=== PATIENT | female | born 1965 | race Caucasian/White ===

== ENCOUNTER 2020-12-18 07:03 | Emergency (ER) | payer BC ==
[2020-12-18 07:08] VITALS: BP 96/56; PULSE 84
[2020-12-18] MEDS ORDERED: Ketorolac 60 MG/2 ML SDV IM ONE (08:10)
[2020-12-18] MEDS ORDERED: traMADol 50 MG Tab PO ONE (08:15)
[2020-12-18 08:41] LABS: CHLORIDE,CL 104 mmol/L (98-107); SODIUM,NA 141 mmol/L (136-145)
[2020-12-18] MEDS ORDERED: Morphine 4 MG/ML Syringe SUBCUT ONE (09:14)
--- NOTE | 2020-12-18 09:14 | EDM.PDOC ---
ED HPI GENERAL MEDICAL PROBLEM - General Chief Complaint: Lower Extremity Injury/Pain Stated Complaint: left foot injury Time Seen by Provider: 12/18/20 07:35 Source of Information: Reports: Patient History Limitations: Reports: No Limitations - History of Present Illness INITIAL COMMENTS - FREE TEXT/NARRATIVE: Slipped and fell on ice last night. Has left foot pain. This morning more swollen and painful. Denies other injuries. Does have a bump on back of head but denies LOC. 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: Other (see below) Other Treatments SUPERVISOR INSTRUMENT REPAIR: hydrocodone Left Foot Pain Score (Numeric/FACES): 8 - Related Data Allergies Allergy/AdvReac Type Severity Reaction Status Date / Time cephalexin [From Keflex] Allergy Itching Verified 12/18/20 07:04 Sulfa (Sulfonamide Allergy Itching Verified 12/18/20 07:04 Antibiotics) Home Meds: Home Meds Codeine Sulfate 30 mg PO Q6H PRN #10 tab 12/18/20 [Rx] FLUoxetine HCl [Prozac] 1 cap PO DAILY 12/18/20 [History] Melatonin 1 tab PO BEDTIME 12/18/20 [History] Vit #116/Iron/FA/Dha [ Formula-Dha Softgel] 1 cap PO DAILY 12/18/20 [History] 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: 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: Reports: Back Pain, Chronic Psychiatric History: Reports: Anxiety, Depression - Infectious Disease History Infectious Disease History: Reports: Chicken Pox, Shingles - Past Surgical History Female Surgical History: Reports: Hysterectomy Musculoskeletal Surgical History: Reports: Other (See Below) Other Musculoskeletal Surgeries/Procedures:: back surgery Social & Family History - Tobacco Use Tobacco Use Status *Q: Current Every Day Tobacco User Years of Tobacco use: 40 Packs/Tins Daily: 0.5 Used Tobacco, but Quit: No Second Hand Smoke Exposure: No - Caffeine Use Caffeine Use: Reports: Coffee, Soda - Alcohol Use Days Per Week of Alcohol Use: 1 Number of Drinks Per Day: 6 Total Drinks Per Week: 6 - Recreational Drug Use Recreational Drug Use: No Review of Systems - Review of Systems Review Of Systems: See Below Constitutional: Reports: No Symptoms Eyes: Denies: Blindness, Decreased Acuity, Photophobia, Vision Change Ears: Reports: No Symptoms Nose: Reports: No Symptoms Mouth/Throat: Reports: No Symptoms Respiratory: Reports: No Symptoms Cardiovascular: Reports: No Symptoms GI/Abdominal: Reports: No Symptoms Genitourinary: Reports: No Symptoms Musculoskeletal: Reports: Foot Pain, Joint Swelling, Other (bump back of head) Skin: Reports: No Symptoms Neurological: Reports: No Symptoms Psychiatric: Reports: No Symptoms ED EXAM, GENERAL - Physical Exam Exam: See Below Exam Limited By: No Limitations General Appearance: Alert, WD/WN, Mild Distress Eye Exam: Bilateral Eye: EOMI, PERRL Ears: Hearing Grossly Normal Nose: No: Nasal Deformity, Nasal Swelling, Nasal Drainage Throat/Mouth: Normal Lips, Normal Voice, No Airway Compromise Head: Other (small bump back of head/mild tenderness) Neck: Normal Inspection, Supple, Non-Tender, Full Range of Motion Respiratory/Chest: No Respiratory Distress, Lungs Clear, Normal Breath Sounds, No Accessory Muscle Use, Chest Non-Tender Cardiovascular: Regular Rate, Rhythm, No Murmur GI/Abdominal: Soft, Non-Tender (Female) Exam: Deferred Rectal (Female) Exam: Deferred Back Exam: No: Muscle Spasm, Paraspinal Tenderness, Vertebral Tenderness Extremities: Other (Swelling proximal foot/ankle region on left/tender to touch diffusely) Neurological: Alert, Oriented, Normal Cognition Psychiatric: Normal Affect, Normal Mood Skin Exam: Warm, Dry, Intact. No: Ecchymosis, Erythema, Mottled, Pallor Course - Vital Signs Last Recorded V/S: Last Vital Signs Temp 36.2 C 12/18/20 07:07 Pulse 84 12/18/20 07:07 Resp 16 12/18/20 07:07 BP 96/56 L 12/18/20 07:07 Pulse Ox 99 12/18/20 07:07 - Orders/Labs/Meds Orders: Active Orders 24 hr Category Date Time Status Foot Comp Min 3V Lt [CR] Stat Exams 12/18/20 07:11 Taken Foot wo Cont Lt [CT] Stat Exams 12/18/20 08:32 Taken Labs: Laboratory Tests 12/18/20 12/18/20 Range/Units 08:20 08:20 WBC 9.4 (4.0-10.2) K/uL RBC 4.35 (3.77-5.09) M/uL Hgb 14.1 (11.7-15.5) g/dL Hct 42.0 (34.0-46.0) % MCV 96.6 (84.0-98.0) fL MCH 32.4 (28.2-33.3) pg MCHC 33.6 (31.7-36.0) g/dL RDW 13.2 (11.2-14.1) % Plt Count 198 (150-350) K/uL Neut % (Auto) 81.0 H (45.0-80.0) % Lymph % (Auto) 14.1 (10.0-50.0) % Wilson % (Auto) 4.0 (2.0-14.0) % Eos % (Auto) 0.7 (0.0-5.0) % Baso % (Auto) 0.2 (0.0-2.0) % Neut # (Auto) 7.58 H (1.40-7.00) K/uL Lymph # (Auto) 1.32 (0.50-3.50) K/uL Wilson # (Auto) 0.37 (0.00-1.00) K/uL Eos # (Auto) 0.07 (0.00-0.50) K/uL Baso # (Auto) 0.02 (0.00-0.20) K/uL Sodium 141 (136-145) mmol/L Potassium 4.0 (3.5-5.1) mmol/L Chloride 104 (98-107) mmol/L Carbon Dioxide 22.2 (21.0-32.0) mmol/L BUN 14 (7-18) mg/dL Creatinine 0.62 (0.51-1.17) mg/dL Est Cr Clr Drug Dosing TNP Estimated GFR (MDRD) > 60 mL/min Glucose 83 (70-99) mg/dL Calcium 8.6 (8.5-10.1) mg/dL Magnesium 2.0 (1.8-2.4) mg/dL Total Bilirubin 0.3 (0.2-1.0) mg/dL AST 24 (15-37) U/L ALT 25 (12-78) U/L Alkaline Phosphatase 91 (46-116) IU/L Total Protein 7.9 (6.4-8.2) g/dL Albumin 4.4 (3.4-5.0) g/dL - Radiology Interpretation Free Text/Narrative:: Xray confirmed multiple fractures involving foot. - Re-Assessments/Exams Free Text/Narrative Re-Assessment/Exam: Discussed patient with from [facility]. He requested a CT study for b jonathan evaluation of fractures. Patient is to follow up with next Tuesday for further evaluation and planning as needed. May require surgery. Is to wear prefab immobilizing boot for now. Rx for pain medication dispensed. To follow up as needed PRN problems. Departure - Departure Time of Disposition: 10:00 Disposition: Home, Self-Care 01 Condition: Good Clinical Impression: Fracture of foot Qualifiers: Encounter type: initial encounter Fracture type: closed Laterality: left Qualified Code(s): S92.902A - Unspecified fracture of left foot, initial encounter for closed fracture - Discharge Information *PRESCRIPTION DRUG MONITORING PROGRAM REVIEWED*: Not Applicable *COPY OF PRESCRIPTION DRUG MONITORING REPORT IN PATIENT RICARDO: Not Applicable Prescriptions: Codeine Sulfate 30 mg PO Q6H PRN #10 tab PRN Reason: Pain Referrals: Harini Peterson PA-C [Primary Care Provider] - Forms: ED Department Discharge, ED Return to Work/School Form Additional Instructions: Call [facility] [phone] and specifically tell them that you need a follow up appointment with from [facility] NEXT TUESDAY. He will recheck you on Tuesday and at that time you can discuss the CT results and if there is any need for surgery. Wear boot/keep elevated/you can apply ice to foot when elevated and at rest. OK to take Tylenol or Ibuprofen for pain. You will receive some additional pain medication you can take as needed for more severe pain. Any additional pain medication will need to come from Ortho or your primary care clinic Follow up tomorrow with A.F. at your clinic for recheck and additional pain meds as needed. Sepsis Event Note (ED) - Evaluation Sepsis Screening Result: No Definite Risk - Focused Exam Vital Signs: Vital Signs Temp Pulse Resp BP Pulse Ox 12/18/20 07:07 36.2 C 84 16 96/56 L 99 - My Orders Last 24 Hours: My Active Orders 12/18/20 07:11 Foot Comp Min 3V Lt [CR] Stat 12/18/20 08:32 Foot wo Cont Lt [CT] Stat - Assessment/Plan Last 24 Hours: My Active Orders 12/18/20 07:11 Foot Comp Min 3V Lt [CR] Stat 12/18/20 08:32 Foot wo Cont Lt [CT] Stat
[2020-12-18] MEDS ORDERED: Ondansetron 4 MG Tab.DIS PO ONE (09:15)
== END 2020-12-18 10:17 | disposition home or self-care (01) ==
LOC: LL.ED 07:03
DX: S92.325A Nondisplaced fracture of second metatarsal bone, left foot, initial encounter for closed fracture (principal); S92.335A Nondisplaced fracture of third metatarsal bone, left foot, initial encounter for closed fracture; S92.345A Nondisplaced fracture of fourth metatarsal bone, left foot, initial encounter for closed fracture; Z88.1 Allergy status to other antibiotic agents; Z88.2 Allergy status to sulfonamides; Z79.899 Other long term (current) drug therapy; Z72.0 Tobacco use; W00.0XXA Fall on same level due to ice and snow, initial encounter
CPT/HCPCS: 36415; 73630; 73700; 80053; 83735; 85025; 96372; 99284; A9270; J1885; J2270

== ENCOUNTER 2021-07-22 01:54 | Emergency (ER) | payer BC ==
--- NOTE | 2021-07-22 02:50 | EDM.PDOC ---
ED HPI GENERAL MEDICAL PROBLEM - General Chief Complaint: Laceration Stated Complaint: Fall, Intoxication Time Seen by Provider: 07/22/21 02:02 Source of Information: Reports: Patient, EMS History Limitations: Reports: Intoxication - History of Present Illness INITIAL COMMENTS - FREE TEXT/NARRATIVE: Patient fell off of bar stool and hit head. No LOC. Has laceration. Intoxica ngoc. No other acute complaints. 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: 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: Reports: Back Pain, Chronic Psychiatric History: Reports: Anxiety, Depression - Infectious Disease History Infectious Disease History: Reports: Chicken Pox, Shingles - Past Surgical History Female Surgical History: Reports: Hysterectomy Musculoskeletal Surgical History: Reports: Other (See Below) Other Musculoskeletal Surgeries/Procedures:: back surgery Social & Family History - Tobacco Use Tobacco Use Status *Q: Unknown Ever Used Tobacco - Caffeine Use Caffeine Use: Reports: Coffee, Soda - Alcohol Use Alcohol Use in Last Twelve Months: Yes Alcohol Use Comment: Uncertain as to true frequency/amount of intake ED ROS GENERAL - Review of Systems Review Of Systems: See Below Constitutional: Reports: No Symptoms HEENT: Reports: Other (head laceration of left posterior scalp) Respiratory: Reports: No Symptoms Cardiovascular: Reports: No Symptoms. Denies: Chest Pain GI/Abdominal: Reports: No Symptoms : Reports: No Symptoms Musculoskeletal: Reports: No Symptoms Skin: Reports: Other (head laceration) Neurological: Reports: Other (sore around laceration). Denies: Dizziness, Seizure, Syncope, Change in Speech Psychiatric: Reports: No Symptoms ED EXAM, SKIN/RASH Exam: See Below Exam Limited By: Intoxication (patient uncooperative with cleaning around wound margins/cleaning blood in hair) General Appearance: Alert, No Apparent Distress, Other (intoxicated, happy) Eye Exam: Bilateral Eye: EOMI, PERRL Ears: Normal External Exam, Normal Canal, Hearing Grossly Normal Nose: No: Nasal Deformity, Nasal Swelling Throat/Mouth: Normal Lips, Normal Voice, No Airway Compromise Head: Other (laceration left posterior scalp/behind left ear) Neck: Supple, Non-Tender, Full Range of Motion. No: Tender Lateral, Tender Midline Respiratory/Chest: No Respiratory Distress, Lungs Clear Cardiovascular: Regular Rate, Rhythm GI/Abdominal: Soft, Non-Tender (Female) Exam: Deferred Rectal (Female) Exam: Deferred Back Exam: No: Muscle Spasm Extremities: Non-Tender, Normal Capillary Refill Neurological: Alert, Other (intoxicated but oriented) Psychiatric: Normal Affect, Normal Mood Skin: Warm, Wound/Incision Location, Skin: Head ED SKIN PROCEDURES - Laceration/Wound Repair Left Lateral Head Appearance: Subcutaneous, Linear, Clean Course - Vital Signs Last Recorded V/S: Last Vital Signs Temp 36.1 C 07/22/21 02:05 Pulse 72 07/22/21 02:05 Resp 16 07/22/21 02:05 BP 110/65 07/22/21 02:05 Pulse Ox 97 07/22/21 02:05 - Orders/Labs/Meds Labs: Laboratory Tests 07/22/21 07/22/21 Range/Units 02:35 02:35 WBC 6.4 (4.0-10.2) K/uL RBC 4.00 (3.77-5.09) M/uL Hgb 13.4 (11.7-15.5) g/dL Hct 38.8 (34.0-46.0) % MCV 97.0 (84.0-98.0) fL MCH 33.5 H (28.2-33.3) pg MCHC 34.5 (31.7-36.0) g/dL RDW 13.0 (11.2-14.1) % Plt Count 200 (150-350) K/uL Neut % (Auto) 45.1 (45.0-80.0) % Lymph % (Auto) 42.9 (10.0-50.0) % [place] % (Auto) 4.7 (2.0-14.0) % Eos % (Auto) 6.4 H (0.0-5.0) % Baso % (Auto) 0.9 (0.0-2.0) % Neut # (Auto) 2.87 (1.40-7.00) K/uL Lymph # (Auto) 2.74 (0.50-3.50) K/uL [place] # (Auto) 0.30 (0.00-1.00) K/uL Eos # (Auto) 0.41 (0.00-0.50) K/uL Baso # (Auto) 0.06 (0.00-0.20) K/uL Sodium 136 (136-145) mmol/L Potassium 3.6 (3.5-5.1) mmol/L Chloride 99 (98-107) mmol/L Carbon Dioxide 25.0 (21.0-32.0) mmol/L Anion Gap 12.0 (7-15) meq/L BUN 12 (7-18) mg/dL Creatinine 0.71 (0.51-1.17) mg/dL Est Cr Clr Drug Dosing TNP Estimated GFR (MDRD) > 60 mL/min Glucose 88 (70-99) mg/dL Calcium 8.2 L (8.5-10.1) mg/dL Magnesium 2.3 (1.8-2.4) mg/dL Total Bilirubin 0.2 (0.2-1.0) mg/dL AST 18 (15-37) U/L ALT 25 (12-78) U/L Alkaline Phosphatase 91 (46-116) IU/L Total Protein 7.4 (6.4-8.2) g/dL Albumin 4.1 (3.4-5.0) g/dL Ethyl Alcohol 0.273 H (0.000-0.080) g/dL - Re-Assessments/Exams Free Text/Narrative Re-Assessment/Exam: 07/22/21 02:56 Laceration repaired but patient unwilling to let staff clean blood from hair. Did let us irrigate and cleanse wound with saline. Patient continued to be happy and was joking with staff and family. Does not want to wait for blood results and would like to go home now. CBC/Chem/ETOH ordered. Will contact patient/family if any significant concerns are noted. Precautions/wound care/follow up reviewed prior to discharge. 07/22/21 08:35 ETOH level 0.273 Departure - Departure Time of Disposition: 02:51 Disposition: Home, Self-Care 01 Condition: Good Clinical Impression: Laceration of scalp Qualifiers: Encounter type: initial encounter Qualified Code(s): S01.01XA - Laceration without foreign body of scalp, initial encounter Alcohol intoxication Qualifiers: Complication of substance-induced condition: uncomplicated Qualified Code(s): F10.920 - Alcohol use, unspecified with intoxication, uncomplicated - Discharge Information *PRESCRIPTION DRUG MONITORING PROGRAM REVIEWED*: Not Applicable *COPY OF PRESCRIPTION DRUG MONITORING REPORT IN PATIENT RICARDO: Not Applicable Instructions: Head Injury, Adult, [id number], Sutures, Baker, or Adhesive Wound Closure, [id number] Referrals: Harini Peterson PA-C [Primary Care Provider] - Forms: ED Department Discharge Additional Instructions: Clean hair/blood from area carefully when patient is feeling better. Apply antibiotic ointment several times a day to the healing laceration. Return for re-eval if any signs of infection develop or if there are concerns for neuro changes/worsening head injury. Siria out next Tuesday or Tuesday. Sepsis Event Note (ED) - Evaluation Sepsis Screening Result: No Definite Risk - Focused Exam Vital Signs: Vital Signs Temp Pulse Resp BP Pulse Ox 07/22/21 02:05 36.1 C 72 16 110/65 97
[2021-07-22 03:02] LABS: CHLORIDE,CL 99 mmol/L (98-107); SODIUM,NA 136 mmol/L (136-145)
== END 2021-07-22 03:00 | disposition home or self-care (01) ==
LOC: LL.ED 01:54
DX: S01.01XA Laceration without foreign body of scalp, initial encounter (principal); F10.120 Alcohol abuse with intoxication, uncomplicated; Y90.0 Blood alcohol level of less than 20 mg/100 ml; Z88.1 Allergy status to other antibiotic agents; Z88.2 Allergy status to sulfonamides; W08.XXXA Fall from other furniture, initial encounter; Y92.89 Other specified places as the place of occurrence of the external cause
CPT/HCPCS: 12001; 36415; 80053; 80307; 83735; 85025; 99283; 99284-25

== ENCOUNTER 2021-10-24 15:06 | Emergency (ER) | payer OTHER, BC ==
[2021-10-24] MEDS: Ketorolac 30 MG/ML SDV IM ONE (15:39)
== END 2021-10-24 16:30 | disposition home or self-care (01) ==
LOC: LL.ED 15:06
DX: S63.501A Unspecified sprain of right wrist, initial encounter (principal); M25.511 Pain in right shoulder; Z88.1 Allergy status to other antibiotic agents; Z88.2 Allergy status to sulfonamides; X50.0XXA Overexertion from strenuous movement or load, initial encounter; Y99.0 Civilian activity done for income or pay
CPT/HCPCS: 73030-RT; 73110-RT; 96372; 99283; 99283-25; J1885